=== PATIENT | female | born 1990 | race Caucasian/White ===

== ENCOUNTER 2017-04-28 15:42 | Emergency (ER) | payer SELFPAY ==
[2009-11-15 13:40] VITALS: BMI 33.2
[2017-04-28 16:18] LABS: BASOPHILS 0.2 % (0-2); EOSINOPHILS 1.2 % (0-7); HEMATOCRIT 38.9 % (36.0-48.0); HEMOGLOBIN 13.2 g/dL (12-16); IMMATURE GRANULOCYTES 0.1 % (0-5); LYMPHOCYTES 28.9 % (15-50); MCH 30.6 pg (26.0-34.0); MCHC 33.9 g/dL (31.0-37.0); MEAN PLATELET VOLUME 10.7 fL (7.4-10.4); MONOCYTES 5.3 % (2-11); NEUTROPHILS 64.3 % (40-80); PLATELET COUNT 211 10x3/uL (130-400); RBC 4.32 10x6/uL (4.00-5.40); RDW 13.2 % (11.5-14.5); WBC 9.7 10x3/uL (4.8-10.8)
[2017-04-28 16:45] LABS: INR 0.97 (0.85-1.17); PROTIME 12.8 SECONDS (11.6-15.0)
[2017-04-28 16:51] LABS: ALBUMIN 3.9 g/dL (3.4-5.0); ALKALINE PHOSPHATASE 73 U/L (46-116); ALT (SGPT) 17 U/L (10-68); CALC OSMOLALITY 282 mosm/kg (275-300); CALCIUM 8.6 mg/dL (8.5-10.1); CARBON DIOXIDE 26.9 mmol/L (21.0-32.0); CHLORIDE - SERUM 107 mmol/L (98-107); CREATININE - SERUM 0.8 mg/dL (0.6-1.3); GLUCOSE 85 mg/dL (74-106); POTASSIUM - SERUM 3.5 mmol/L (3.5-5.1); SODIUM 143 mmol/L (136-145); UREA NITROGEN 9 mg/dL (7-18); eGFR NON AFRICAN AMERICAN > 90 mL/min (90-120)
== END 2017-04-28 18:15 | disposition home or self-care (01) ==
LOC: D.ER 15:42
PROVIDERS: Physician Assistant Medical
DX: K92.2 Gastrointestinal hemorrhage, unspecified (principal); F17.200 Nicotine dependence, unspecified, uncomplicated

== ENCOUNTER 2019-05-05 12:48 | Emergency (ER) | payer MEDICAID ==
[~2019-05-05] VITALS: Ht 152.4 cm; Wt 75.0 kg
[2019-05-05 13:11] VITALS: BP 121/77; Ht 152.4 cm; Wt 75.0 kg
[2019-05-05] MEDS ORDERED: OMEPRAZOLE20 M1 PO (13:13)
[2019-05-05] MEDS ORDERED: ZOFRAN ODT4 MG/UDTAB (13:13)
[2019-05-05] MEDS ORDERED: MACROBID100 MG PO (13:14)
[2019-05-05 14:39] LABS: BASOPHILS 0.1 % (0-2); EOSINOPHILS 0.4 % (0-7); HEMATOCRIT 39.9 % (36.0-48.0); HEMOGLOBIN 13.6 g/dL (12-16); IMMATURE GRANULOCYTES 0.2 % (0-5); LYMPHOCYTES 8.7 % (15-50); MCH 29.6 pg (26.0-34.0); MCHC 34.1 g/dL (31.0-37.0); MCV 86.9 fL (80.0-100.0); MEAN PLATELET VOLUME 10.7 fL (7.4-10.4); MONOCYTES 3.4 % (2-11); NEUTROPHILS 87.2 % (40-80); PLATELET COUNT 188 10x3/uL (130-400); RBC 4.59 10x6/uL (4.00-5.40); RDW 13.6 % (11.5-14.5); WBC 12.8 10x3/uL (4.8-10.8)
[2019-05-05 14:53] LABS: ALBUMIN 3.9 g/dL (3.4-5.0); ALKALINE PHOSPHATASE 86 U/L (46-116); ALT (SGPT) 23 U/L (10-68); BILIRUBIN - TOTAL 0.28 mg/dL (0.2-1.3); CALC OSMOLALITY 280 mosm/kg (275-300); CALCIUM 8.6 mg/dL (8.5-10.1); CARBON DIOXIDE 24.4 mmol/L (21.0-32.0); CHLORIDE - SERUM 107 mmol/L (98-107); CREATININE - SERUM 0.8 mg/dL (0.6-1.3); GLUCOSE 93 mg/dL (74-106); POTASSIUM - SERUM 3.6 mmol/L (3.5-5.1); PROTEIN - SERUM 7.3 g/dL (6.4-8.2); SODIUM 142 mmol/L (136-145); UREA NITROGEN 7 mg/dL (7-18); eGFR NON AFRICAN AMERICAN > 90 mL/min (90-120)
[2019-05-05 14:57] LABS: AMYLASE - SERUM 46 U/L (25-115); LIPASE 117 U/L (73-393); TROPONIN-I < 0.017 ng/mL (0.000-0.060)
== END 2019-05-05 16:00 | disposition left against medical advice (07) ==
LOC: D.ER 12:48
PROVIDERS: Family Medicine
DX: R10.9 Unspecified abdominal pain (principal)

== ENCOUNTER 2019-12-13 13:55 | Emergency (ER) | payer OTHER ==
[~2019-12-13] VITALS: Ht 152.4 cm; Wt 63.9 kg
[~2019-12-13 13:55] MED LIST: MACROBID100 MG PO; OMEPRAZOLE20 M1 PO; ZOFRAN ODT4 MG/UDTAB
[2019-12-13 14:07] VITALS: Ht 152.4 cm; Wt 63.9 kg
[2019-12-13] MEDS ORDERED: CYCLOBENZAPRINE5 MG PO (15:04)
[2019-12-13 15:07] VITALS: BP 123/63
== END 2019-12-13 15:12 | disposition home or self-care (01) ==
LOC: D.ER 13:55
DX: M54.89 Other dorsalgia (principal); W01.198A Fall on same level from slipping, tripping and stumbling with subsequent striking against other object, initial encounter; Y93.9 Activity, unspecified; Y92.9 Unspecified place or not applicable; J45.909 Unspecified asthma, uncomplicated; Z72.0 Tobacco use

== ENCOUNTER 2020-03-20 17:07 | Emergency (ER) | payer SELFPAY ==
[~2020-03-20 17:07] MED LIST changes: +CYCLOBENZAPRINE5 MG PO
[2020-03-20 17:11] VITALS: BP 124/64; Ht 152.4 cm
[2020-03-20] MEDS ORDERED: VOLTAREN75 MG PO (17:33)
[2020-03-20] MEDS ORDERED: BACLOFEN20 M1 PO (17:33)
== END 2020-03-20 17:58 | disposition home or self-care (01) ==
LOC: D.ER 17:07
DX: T14.8XXA Other injury of unspecified body region, initial encounter (principal); M25.511 Pain in right shoulder; J45.909 Unspecified asthma, uncomplicated; X50.0XXA Overexertion from strenuous movement or load, initial encounter; Y93.9 Activity, unspecified; Y92.9 Unspecified place or not applicable

== ENCOUNTER 2020-05-27 16:05 | Emergency (ER) | payer SELFPAY ==
[~2020-05-27] VITALS: Ht 152.4 cm; Wt 79.0 kg
[~2020-05-27 16:05] MED LIST changes: +BACLOFEN20 M1 PO; +VOLTAREN75 MG PO
[2020-05-27 16:20] VITALS: BP 115/63; Ht 152.4 cm; Wt 79.0 kg
[2020-05-27] MEDS ORDERED: DICLOFENAC SODI50 MG PO (17:16)
== END 2020-05-27 17:24 | disposition home or self-care (01) ==
LOC: D.ER 16:05
DX: S80.02XA Contusion of left knee, initial encounter (principal); W22.8XXA Striking against or struck by other objects, initial encounter; J45.909 Unspecified asthma, uncomplicated